=== PATIENT | female | born 1985 | race African-American/Black ===

== ENCOUNTER 2018-10-30 14:34 | Emergency (ER) | payer MEDICAID ==
[~2018-10-30] VITALS: Ht 162.6 cm; Wt 63.0 kg
[~2018-10-30 14:34] MED LIST: DULO60CA44 PO; INSASP; INSLAN SQ; INSU100C11 SQ; NITR-87 PO
[2018-10-30] MEDS ORDERED: SODIUM CHLORIDE 0.9% 1,000 ML IV ONE (18:12)
[2018-10-30] MEDS ORDERED: ONDANSETRON HCL 4MG/2ML INJ IV STA (18:12)
[2018-10-30] MEDS ORDERED: FAMOTIDINE 20MG/2ML VIAL IV STA (18:12)
[2018-10-30 18:51] LABS: BASOPHILS % 0.9 % (0.0-2.0); EOSINOPHILS % 0.3 % (0.0-5.0); HEMATOCRIT. 36.2 % (36.0-48.0); HEMOGLOBIN. 11.8 g/dL (12.0-16.0); LYMPHOCYTES % 24.9 % (20.0-50.0); MEAN CORPUSCULAR VOLUME 83.2 fL (81.0-99.0); MEAN PLATELET VOLUME 9.5 fl (7.4-10.4); MONOCYTES % 7.2 % (2.0-8.0); NEUTROPHILS % 66.7 % (40.0-76.0); PLATELET 251 x1000/uL (130-400); RED BLOOD CELL COUNT 4.35 mill/uL (4.2-5.4); RED CELL DISTRIBUTION WIDTH 13.7 % (11.6-14.6)
[2018-10-30 18:51] LABS: CLARITY URINE CLOUDY (CLEAR); COLOR URINE YELLOW (YELLOW); KETONES URINE 1+ (NEGATIVE); LEUKOCYTE ESTERASE URINE NEGATIVE (NEGATIVE); NITRITE URINE NEGATIVE (NEGATIVE); OCCULT BLOOD URINE 2+ (NEGATIVE); PROTEIN URINE 4+ (NEGATIVE); SPECIFIC GRAVITY URINE 1.026 (1.005-1.030)
[2018-10-30 18:54] LABS: CHLORIDE 100 mEq/L (98-107)
[2018-10-30 18:55] LABS: PROTHROMBIN TIME 10.3 sec (9.6-11.0)
[2018-10-30 19:03] LABS: HCG SCREEN POSITIVE
[2018-10-30 19:17] LABS: B-HCG QUANTITATIVE 42292 mIU/mL (<3)
[2018-10-30] MEDS ORDERED: CEFAZOLIN 1000MG PREMIX 50 ML IV ONE (19:30)
[2018-10-30] MEDS ORDERED: ONDANSETRON HCL 4MG/2ML INJ IV ONE (21:15)
[2018-10-30 23:02] VITALS: BP 147/90
== END 2018-10-30 23:05 | disposition home or self-care (01) ==
LOC: ER 14:34
DX: O26.891 Other specified pregnancy related conditions, first trimester (principal); R10.13 Epigastric pain; O23.41 Unspecified infection of urinary tract in pregnancy, first trimester; O24.311 Unspecified pre-existing diabetes mellitus in pregnancy, first trimester; E11.9 Type 2 diabetes mellitus without complications; Z3A.01 Less than 8 weeks gestation of pregnancy; Z79.4 Long term (current) use of insulin; Z98.890 Other specified postprocedural states
CPT/HCPCS: 36415; 76801; 80053; 81003; 81025; 82962; 83690; 84702; 84703; 85025; 85610; 86850; 86900; 86901; 87086; 96361; 96365; 96375; 96376; 99284; J0690; J2405; J3490; J7030

== ENCOUNTER 2019-12-15 17:23 | Emergency (ER) | payer MEDICAID ==
[~2019-12-15] VITALS: Ht 165.1 cm; Wt 65.0 kg
[~2019-12-15 17:23] MED LIST changes: -DULO60CA44 PO
[2019-12-15 17:46] VITALS: BP 175/117
== END 2019-12-15 19:26 | disposition home or self-care (01) ==
LOC: ER 17:23
DX: H43.391 Other vitreous opacities, right eye (principal); E11.9 Type 2 diabetes mellitus without complications; Z98.890 Other specified postprocedural states; Z79.4 Long term (current) use of insulin
CPT/HCPCS: 99281

== ENCOUNTER 2020-05-09 13:28 | Inpatient (IN) | payer MEDICAID ==
[~2020-05-09] VITALS: Ht 162.6 cm; Wt 64.4 kg
[~2020-05-09 13:28] MED LIST changes: -NITR-87 PO
[2020-05-09 16:13] LABS: HEMOGLOBIN. 8.7 g/dL (12.0-16.0); LYMPHOCYTES % 29.8 % (20.0-50.0); MEAN CORPUSCULAR HEMOGLOBIN 26.8 pg (28.0-32.0); MEAN CORPUSCULAR VOLUME 82.8 fL (81.0-99.0); MEAN PLATELET VOLUME 11.1 fl (7.4-10.4); MONOCYTES % 5.4 % (2.0-8.0); NEUTROPHILS % 61.8 % (40.0-76.0); PLATELET 242 x1000/uL (130-400); RED BLOOD CELL COUNT 3.26 mill/uL (4.2-5.4); RED CELL DISTRIBUTION WIDTH 13.8 % (11.6-14.6)
[2020-05-09 16:17] LABS: CLARITY URINE CLEAR (CLEAR); COLOR URINE YELLOW (YELLOW); KETONES URINE NEGATIVE (NEGATIVE); LEUKOCYTE ESTERASE URINE NEGATIVE (NEGATIVE); NITRITE URINE NEGATIVE (NEGATIVE); OCCULT BLOOD URINE 2+ (NEGATIVE); PROTEIN URINE 3+ (NEGATIVE); SPECIFIC GRAVITY URINE 1.012 (1.005-1.030); UROBILINOGEN URINE 0.2 E.U./dL (0.2-1.0)
[2020-05-09 16:22] LABS: CHLORIDE 106 mEq/L (98-107)
[2020-05-09 16:32] LABS: BETA HYDROXYBUTYRATE 0.2 mMol/L (0.0-0.3)
[2020-05-09 16:41] LABS: *AMPHETAMINES SCREEN URINE NEGATIVE (NEGATIVE); *BARBITURATES SCREEN URINE NEGATIVE (NEGATIVE)
[2020-05-09 16:42] LABS: *BENZODIAZEPINES SCREEN URINE NEGATIVE (NEGATIVE); *COCAINE SCREEN URINE NEGATIVE (NEGATIVE); CANNABINOID URINE SCREEN NEGATIVE (NEGATIVE); METHADONE URINE SCREEN NEGATIVE (NEGATIVE); OPIATES URINE SCREEN NEGATIVE (NEGATIVE); PHENCYCLIDINE URINE SCREEN NEGATIVE (NEGATIVE)
[2020-05-10] VITALS (8 sets, daily range): BP systolic 120–212; BP diastolic 62–126
[2020-05-10] MEDS ORDERED: ATOR20TA65 MT (10:18)
[2020-05-10] MEDS ORDERED: INSU100I28 SQ (10:18)
[2020-05-10] MEDS ORDERED: CLON0.1T PO (10:18)
[2020-05-10] MEDS ORDERED: ONDA4TAB11 PO (10:18)
[2020-05-10] MEDS ORDERED: INSU100I13 SQ (10:18)
[2020-05-10] MEDS ORDERED: FURO20TA4 PO (10:18)
[2020-05-10] MEDS ORDERED: LOSA25TA26 PO (10:18)
[2020-05-10] MEDS ORDERED: CALC-25 MT (10:18)
[2020-05-10] MEDS ORDERED: INSULIN GLARGINE UD 100 UNITS/ML SYR SUBCUT ONE (10:30)
[2020-05-10] MEDS ORDERED: ONDANSETRON 4MG ODT PO PRN ×2 (10:30→10:45)
[2020-05-10] MEDS ORDERED: CLONIDINE 0.1MG TABLET PO SCH (10:30)
[2020-05-10] MEDS ORDERED: LOSARTAN POTASSIUM 25 MG TABLET PO SCH (11:00)
[2020-05-10] MEDS: FUROSEMIDE 20MG TABLET PO SCH (11:09)
[2020-05-10] MEDS: HEPARIN 5000 UNITS/ML VIAL SUBCUT SCH ×2 (11:09→20:24)
[2020-05-10] MEDS: CALCIUM CARBONATE 1250MG TABLET (500MG ELEMENTAL CALCIUM) PO SCH ×2 (11:09→16:27)
[2020-05-10] MEDS ORDERED: DEXTROSE 50% WATER 50ML SYRINGE IV PRN (11:30)
[2020-05-10] MEDS: INSULIN LISPRO 100 UNITS/ML SUBCUT SCH ×3 (11:32→20:25)
[2020-05-10] MEDS: BLOOD SUGAR DIAGNOSTIC STRIP TEST SCH ×3 (11:33→20:26)
[2020-05-10] MEDS ORDERED: *PATIENT'S OWN MEDICATION STORAGE XX SCH (11:45)
[2020-05-10] MEDS ORDERED: ERGOCALCIFEROL 50000UNITS CAPSULE PO SCH (13:30)
[2020-05-10] MEDS: IPRATROPIUM/ALBUTEROL 0.5-3(2.5)MG/3ML NEB HHN SCH ×2 (13:53→20:20)
[2020-05-10] MEDS: CLONIDINE 0.2MG TABLET PO SCH ×2 (14:03→22:31)
[2020-05-10 18:33] LABS: TOTAL IRON BINDING CAPACITY 189 ug/dL (250-450)
[2020-05-10 18:36] LABS: CREATINE KINASE 732 IU/L (26-192)
[2020-05-10] MEDS: METOPROLOL TARTRATE 25MG TABLET PO SCH (20:23)
[2020-05-10] MEDS: FAMOTIDINE 20MG TABLET PO SCH (20:23)
[2020-05-10] MEDS: LATANOPROST 0.005% OPHTH DROPS 2.5ML BOTHEYE SCH (20:26)
[2020-05-10] MEDS: BRIMONIDINE 0.2% OPHTH DROPS 5ML BOTHEYE SCH (20:26)
[2020-05-10] MEDS: DORZOLAMIDE 2% OPHTH 10 ML BOTTLE BOTHEYE SCH (20:26)
[2020-05-10] MEDS ORDERED: ATORVASTATIN CALCIUM 20MG TABLET PO SCH ×2 (21:00)
[2020-05-10] MEDS: INSULIN GLARGINE UD 100 UNITS/ML SYR SUBCUT SCH (22:30)
[2020-05-11] VITALS (12 sets, daily range): BP systolic 133–190; BP diastolic 72–120
[2020-05-11] MEDS: IPRATROPIUM/ALBUTEROL 0.5-3(2.5)MG/3ML NEB HHN SCH ×4 (02:35→20:45)
[2020-05-11] MEDS: CLONIDINE 0.2MG TABLET PO SCH ×3 (05:01→21:29)
[2020-05-11 06:04] LABS: BASOPHILS % 0.9 % (0.0-2.0); CHLORIDE 107 mEq/L (98-107); EOSINOPHILS % 4.4 % (0.0-5.0); HEMATOCRIT. 24.6 % (36.0-48.0); HEMOGLOBIN. 8.1 g/dL (12.0-16.0); MEAN CORPUSCULAR HEMOGLOBIN 27.3 pg (28.0-32.0); MEAN CORPUSCULAR VOLUME 82.7 fL (81.0-99.0); MEAN PLATELET VOLUME 10.6 fl (7.4-10.4); MONOCYTES % 5.8 % (2.0-8.0); NEUTROPHILS % 46.9 % (40.0-76.0); PLATELET 227 x1000/uL (130-400); RED BLOOD CELL COUNT 2.98 mill/uL (4.2-5.4); RED CELL DISTRIBUTION WIDTH 13.8 % (11.6-14.6)
[2020-05-11 06:12] LABS: CREATINE KINASE MB FRACTION 2.3 ng/mL (0.5-3.6); PHOSPHORUS 3.9 mg/dL (2.5-4.9)
[2020-05-11 06:14] LABS: CREATINE KINASE 484 IU/L (26-192)
[2020-05-11 06:19] LABS: LDL CHOLESTEROL 140 mg/dL (5-100)
[2020-05-11 06:25] LABS: HDL CHOLESTEROL 47 mg/dL (40-59)
[2020-05-11 06:30] LABS: HEPATITIS B SURFACE ANTIGEN NEGATIVE
[2020-05-11] MEDS: BLOOD SUGAR DIAGNOSTIC STRIP TEST SCH ×4 (06:55→20:04)
[2020-05-11 07:00] LABS: HEPATITIS A AB IGM NEGATIVE (NEGATIVE)
[2020-05-11] MEDS: INSULIN LISPRO 100 UNITS/ML SUBCUT SCH ×4 (07:20→21:30)
[2020-05-11] MEDS ORDERED: LOSARTAN POTASSIUM 50 MG TABLET PO SCH (08:00)
[2020-05-11] MEDS: CALCIUM CARBONATE 1250MG TABLET (500MG ELEMENTAL CALCIUM) PO SCH (08:16)
[2020-05-11] MEDS: FUROSEMIDE 20MG TABLET PO SCH (08:17)
[2020-05-11] MEDS: DORZOLAMIDE 2% OPHTH 10 ML BOTTLE BOTHEYE SCH ×2 (08:17→20:03)
[2020-05-11] MEDS: METOPROLOL TARTRATE 25MG TABLET PO SCH (08:17)
[2020-05-11] MEDS: BRIMONIDINE 0.2% OPHTH DROPS 5ML BOTHEYE SCH ×2 (08:19→20:03)
[2020-05-11] MEDS ORDERED: INSULIN GLARGINE UD 100 UNITS/ML SYR SUBCUT SCH (09:00)
[2020-05-11] MEDS ORDERED: POTASSIUM CHLORIDE 20MEQ TABLET SR PO NR (10:00)
[2020-05-11] MEDS: SPIRONOLACTONE 25MG TABLET PO SCH (10:49)
[2020-05-11] MEDS: HEPARIN 5000 UNITS/ML VIAL SUBCUT SCH ×2 (10:50→20:04)
[2020-05-11] MEDS ORDERED: SORBITOL 70% SOLN 30ML PO NR (11:45)
[2020-05-11] MEDS ORDERED: EPOETIN ALFA-EPBX 10,000 UNIT/ML VIAL SUBCUT NR (13:00)
[2020-05-11] MEDS: NIFEDIPINE XL 30MG TAB PO SCH (16:47)
[2020-05-11] MEDS: LATANOPROST 0.005% OPHTH DROPS 2.5ML BOTHEYE SCH (20:03)
[2020-05-11] MEDS: FAMOTIDINE 20MG TABLET PO SCH (20:03)
[2020-05-11] MEDS: LOSARTAN POTASSIUM 50 MG TABLET PO SCH (20:04)
[2020-05-11] MEDS: LABETALOL HCL 200MG TABLET PO SCH (20:04)
[2020-05-11] MEDS: INSULIN GLARGINE UD 100 UNITS/ML SYR SUBCUT SCH (21:30)
[2020-05-12] VITALS (11 sets, daily range): BP systolic 124–155; BP diastolic 68–98
[2020-05-12] MEDS: IPRATROPIUM/ALBUTEROL 0.5-3(2.5)MG/3ML NEB HHN SCH ×3 (02:30→14:53)
[2020-05-12] MEDS: BLOOD SUGAR DIAGNOSTIC STRIP TEST SCH ×3 (06:01→16:43)
[2020-05-12] MEDS: CLONIDINE 0.2MG TABLET PO SCH ×2 (06:01→12:59)
[2020-05-12 07:05] LABS: BASOPHILS % 1.1 % (0.0-2.0); HEMATOCRIT. 26.7 % (36.0-48.0); HEMOGLOBIN. 8.8 g/dL (12.0-16.0); LYMPHOCYTES % 38.4 % (20.0-50.0); MEAN CORPUSCULAR HEMOGLOBIN 27.5 pg (28.0-32.0); MEAN CORPUSCULAR VOLUME 83.1 fL (81.0-99.0); MEAN PLATELET VOLUME 10.6 fl (7.4-10.4); MONOCYTES % 5.1 % (2.0-8.0); NEUTROPHILS % 51.4 % (40.0-76.0); PLATELET 225 x1000/uL (130-400); RED BLOOD CELL COUNT 3.21 mill/uL (4.2-5.4); RED CELL DISTRIBUTION WIDTH 13.9 % (11.6-14.6)
[2020-05-12 07:07] LABS: CHLORIDE 109 mEq/L (98-107)
[2020-05-12] MEDS: NIFEDIPINE XL 30MG TAB PO SCH (08:06)
[2020-05-12] MEDS: FUROSEMIDE 20MG TABLET PO SCH (08:06)
[2020-05-12] MEDS: LOSARTAN POTASSIUM 50 MG TABLET PO SCH (08:06)
[2020-05-12] MEDS: SPIRONOLACTONE 25MG TABLET PO SCH (08:06)
[2020-05-12] MEDS: BRIMONIDINE 0.2% OPHTH DROPS 5ML BOTHEYE SCH (08:07)
[2020-05-12] MEDS: LABETALOL HCL 200MG TABLET PO SCH (08:07)
[2020-05-12] MEDS: DORZOLAMIDE 2% OPHTH 10 ML BOTTLE BOTHEYE SCH (08:07)
[2020-05-12] MEDS: INSULIN LISPRO 100 UNITS/ML SUBCUT SCH ×3 (08:11→16:48)
[2020-05-12] MEDS ORDERED: LACTULOSE 20G/30ML UDC PO SCH (11:45)
[2020-05-12] MEDS: HEPARIN 5000 UNITS/ML VIAL SUBCUT SCH (12:59)
[2020-05-12] MEDS ORDERED: LABE200T28 PO (15:42)
[2020-05-12] MEDS ORDERED: CLON0.2T12 PO (15:42)
[2020-05-12] MEDS ORDERED: NIFE-33 PO (15:42)
[2020-05-12] MEDS ORDERED: LOSA50TA3 PO (15:42)
[2020-05-12] MEDS ORDERED: SPIR25TA PO (15:42)
[2020-05-13 04:07] LABS: HIV SCREEN 4G Non Reactive (Non Reactive)
== END 2020-05-12 19:31 | disposition home or self-care (01) | DRG 462 ==
LOC: ER 13:28 → EDBEDREQ 17:38 → EDBEDREQTM 22:45 → EDBEDREQ 22:45 → CANRESERV 22:53 → ENRESERV 22:53 → EDBEDREQDT 05-10 00:12 → EDBEDREQSVC 05-10 00:12 → EDBEDREQTM 05-10 00:12 → ENRESERV 05-10 08:00 → 3WST 05-10 09:30
PROVIDERS: ADMIT Internal Medicine; ATTEND Internal Medicine
DX: N04.9 Nephrotic syndrome with unspecified morphologic changes (principal); N17.9 Acute kidney failure, unspecified; I13.0 Hypertensive heart and chronic kidney disease with heart failure and stage 1 through stage 4 chronic kidney disease, or unspecified chronic kidney disease; I50.31 Acute diastolic (congestive) heart failure; K21.9 Gastro-esophageal reflux disease without esophagitis; N18.9 Chronic kidney disease, unspecified; D63.1 Anemia in chronic kidney disease; E11.22 Type 2 diabetes mellitus with diabetic chronic kidney disease; E11.319 Type 2 diabetes mellitus with unspecified diabetic retinopathy without macular edema; E11.65 Type 2 diabetes mellitus with hyperglycemia; E78.00 Pure hypercholesterolemia, unspecified; E78.5 Hyperlipidemia, unspecified; E83.51 Hypocalcemia; E87.6 Hypokalemia; I16.0 Hypertensive urgency; D64.9 Anemia, unspecified; F41.9 Anxiety disorder, unspecified; Z79.4 Long term (current) use of insulin; Z79.899 Other long term (current) drug therapy; Z80.0 Family history of malignant neoplasm of digestive organs; Z91.19 Patient's noncompliance with other medical treatment and regimen; Z80.42 Family history of malignant neoplasm of prostate; Z98.891 History of uterine scar from previous surgery; Z88.8 Allergy status to other drugs, medicaments and biological substances
CPT/HCPCS: 36415; 71045; 80053; 80061; 80305; 81003; 82010; 82330; 82550; 82553; 82962; 83036; 83540; 83550; 83880; 84100; 84484; 85025; 86705; 86709; 86803; 87340; 87389; 93005; 93306; 94640; 99285; J0885; J1644; J1815